=== PATIENT | female | born 1955 ===

== ENCOUNTER 2022-07-16 17:40 | Emergency (ER) | payer MEDICARE ==
[~2022-07-16] VITALS: Ht 170.1 cm; Wt 92.5 kg
[2022-07-16 18:37] LABS: BASO % 0.3 % (0.0-1.0); EOS # 0.1 10*3/uL (0.0-0.4); EOS % 0.7 % (1.0-4.0); HEMATOCRIT 42.8 % (37.0-47.0); LYMPH # 2.2 10*3/uL (1.3-4.4); LYMPH % 21.4 % (27.0-41.0); MEAN CELL VOLUME 86.3 fl (81.0-99.0); MEAN CORPUSCULAR HGB 29.2 pg (27.0-31.0); MEAN CORPUSCULAR HGB CONC 33.9 g/dl (33.0-37.0); MEAN PLATELET VOLUME 11.9 fl (9.6-12.3); MONO # 0.8 10*3/uL (0.1-1.0); MONO % 7.8 % (3.0-9.0); NEUT # 7.1 10*3/uL (2.3-7.9); NEUT % 69.6 % (47.0-73.0); PLATELET COUNT AUTOMATED 213 10*3/uL (130-400); RED BLOOD COUNT 4.96 10*6/uL (4.10-5.10); RED CELL DISTRI WIDTH 11.9 % (0-14.5); WHITE BLOOD COUNT 10.3 10*3/uL (4.8-10.8)
[2022-07-16 18:49] LABS: BILIRUBIN Negative (Negative); BLOOD Negative (Negative); CLARITY Cloudy (Clear); COLOR Yellow (Yellow); GLUCOSE Negative (Negative); KETONE 1+ (Negative); LEUKO ESTERASE 2+ (Negative); NITRITE Negative (Negative)
[2022-07-16 18:58] LABS: URINE AMPHETAMINES < 1000 (1000ng/ml); URINE BARBITURATES < 200 (200ng/ml); URINE BENZODIAZEPINES < 200 (200ng/ml); URINE CANNABINOIDS (THC) > 50 (50ng/ml); URINE COCAINE < 300 (300ng/ml); URINE METHADONE < 300 (300ng/ml); URINE OPIATES < 300 (300ng/ml)
[2022-07-16 19:00] LABS: BACTERIA 3+; CALCIUM OXALATE CRYSTALS 1+
[2022-07-16 19:01] LABS: WBC 16-20 wbc/hpf (0-5)
[2022-07-16 19:01] LABS: ALKALINE PHOSPHATASE 71 U/L (45-117); BUN 34 mg/dl (7-24); CHLORIDE 100 mmol/L (98-107); CREATININE 2.22 mg/dL (0.55-1.02); POTASSIUM 3.6 mmol/L (3.5-5.1); SGOT/AST 22 IU/L (3-35); SGPT/ALT 29 U/L (12-78); SODIUM 137 mmol/L (136-145)
[2022-07-16 19:02] LABS: ACETAMINOPHEN (TYLENOL) < 5.0 ug/ml (10-30); ETHYL ALCOHOL < 3.0 mg/dl (<3)
[2022-07-16 19:02] LABS: URINE PHENCYCLIDINE < 25 (25ng/ml)
[2022-07-16 21:36] LABS: CREATININE 1.84 mg/dL (0.55-1.02); POTASSIUM 3.6 mmol/L (3.5-5.1); TOTAL PROTEIN 6.3 gm/dL (6.4-8.2)
[2022-07-16] MEDS ORDERED: MACROBID100 M1 PO (22:26)
== END 2022-07-16 23:55 | disposition home or self-care (01) ==
LOC: ED 17:40
PROVIDERS: Physician Assistant
DX: N39.0 Urinary tract infection, site not specified (principal); F12.929 Cannabis use, unspecified with intoxication, unspecified; Z88.8 Allergy status to other drugs, medicaments and biological substances

== ENCOUNTER 2025-05-01 15:33 | Emergency (ER) | payer MEDICARE ==
[~2025-05-01] VITALS: Ht 167.6 cm; Wt 94.3 kg
[~2025-05-01 15:33] MED LIST: MACROBID100 M1 PO
[2025-05-01] MEDS ORDERED: VIBRAMYCIN100 MG PO (15:55)
== END 2025-05-01 16:09 | disposition home or self-care (01) ==
LOC: ED 15:33
DX: L03.116 Cellulitis of left lower limb (principal); I10 Essential (primary) hypertension; Z79.899 Other long term (current) drug therapy; Z88.1 Allergy status to other antibiotic agents; Z88.5 Allergy status to narcotic agent; Z88.6 Allergy status to analgesic agent; Z88.8 Allergy status to other drugs, medicaments and biological substances